=== PATIENT | male | born 1965 | race Caucasian/White ===

== ENCOUNTER 2018-09-08 13:08 | Emergency (ER) | payer BC ==
[~2018-09-08] VITALS: Ht 182.9 cm; Wt 93.0 kg
[2018-09-08 13:08] VITALS: BP 132/80
--- NOTE | 2018-09-08 15:50 | NUR ---
PT WAS GIVEN INSTRUCTION ON HOW TO CORRECTLY PUT A KNEE BRACE. D/C HOME W/ COPIES OF KNEE AND PATELAR XRAYS IN STABLE CONDITION.
== END 2018-09-08 15:54 | disposition home or self-care (01) ==
LOC: ER 13:15
DX: S82.092A Other fracture of left patella, initial encounter for closed fracture (principal); Z98.890 Other specified postprocedural states; W18.39XA Other fall on same level, initial encounter; Y93.89 Activity, other specified; Y92.89 Other specified places as the place of occurrence of the external cause; Y99.8 Other external cause status
CPT/HCPCS: 73562; 73564; 99283; A4606